=== PATIENT | male | born 1960 | race Caucasian/White ===

== ENCOUNTER 2018-10-12 10:48 | Outpatient (CLI) | payer MEDICARE ==
--- NOTE | 2018-10-12 12:52 | CT ---
CT CHEST WITHOUT CONTRAST: 10/12/2018 PROVIDED CLINICAL HISTORY: Tobacco abuse. Screening. FINDINGS: The heart, pericardium, and great vessels are suboptimally evaluated in the absence of IV contrast ma terial. Vascular calcification, including coronary calcium, is demonstrated. There is no evidence f or thoracic lymph node enlargement, with limitations due to lack of IV contrast material. The airway appears patent and of normal caliber. There is a 7 mm in greatest axial dimension, noncalcified pulmonary nodule at the posterior aspect of the right upper lobe (image 47 of series 2). The lungs are otherwise free or significant opacity. No pleural fluid or pneumothorax apparent. The visualized portions of the upper abdomen demonstrate an unremarkable, unenhanced CT appearance. Thoracic spine degenerative changes are seen. No concerning osteoblastic or osteolytic lesions. IMPRESSION: 1. Lung-RADS category 3-Probably benign. A 7 mm, noncalcified right upper lobe pulmonary nodule. S ix-month follow-up low-dose lung CT scan recommended. 2. Vascular calcification, including coronary calcium. POS: [facility]
== END 2018-10-12 10:49 | disposition home or self-care (01) ==
LOC: CT 10:48
PROVIDERS: ATTEND Family Medicine
DX: F17.210 Nicotine dependence, cigarettes, uncomplicated (principal); I25.10 Atherosclerotic heart disease of native coronary artery without angina pectoris; R91.1 Solitary pulmonary nodule
CPT/HCPCS: G0297

== ENCOUNTER 2019-05-23 08:11 | Outpatient (CLI) | payer MEDICARE ==
--- NOTE | 2019-05-23 09:50 | CT ---
CT PULMONARY LUNG SCAN PERFORMED WITHOUT CONTRAST: HISTORY: Tobacco abuse screening. Followup of right upper lobe pulmonary nodule. COMPARISON: A 10/12/2016 exam. FINDINGS: The right upper lobe pulmonary nodule seen on axial image 50 is stable. It measures in the 7 mm rang e. In addition, there is a left lower lobe pulmonary nodule which, in retrospect is also noted on th e prior study. It also measures in the 7-8 mm range. This is seen on axial image 161. There is als o a pleural-based nodular density seen in the left lower lobe on axial image 189. It measures 7 mm a nd is stable. I do not appreciate any significant mediastinal adenopathy. Coronary calcifications are present whic h are fairly pronounced. Visualized liver parenchyma shows no focal findings. IMPRESSION: 1. Lung RADS category 2 - benign behavior appearance. The pulmonary nodules noted in the right uppe r and left lower lobes are stable. Continued annual screening with low-dose CT in 12 months is recom mended. 2. Lung RADS category S. This is given for the presence of coronary calcification. POS: [facility]
== END 2019-05-23 08:12 | disposition home or self-care (01) ==
LOC: CT 08:11
PROVIDERS: ATTEND Student in an Organized Health Care Education/Training Program
DX: R91.8 Other nonspecific abnormal finding of lung field (principal); F17.210 Nicotine dependence, cigarettes, uncomplicated; I25.10 Atherosclerotic heart disease of native coronary artery without angina pectoris
CPT/HCPCS: G0297